=== PATIENT | female | born 1935 | race Caucasian/White ===

== ENCOUNTER 2022-03-16 16:11 | Inpatient (IN) | payer MEDICARE, OTHER ==
[2022-03-16 17:36] VITALS: BMI 15.5
[2022-03-16] MEDS ORDERED: Morphine 4 MG/ML VIAL SLOW IVP PRN ×3 (17:51→18:04)
[2022-03-16] MEDS ORDERED: Ondansetron PF 4 MG/2 ML Vial IVP PRN (17:51)
[2022-03-16] MEDS ORDERED: Ondansetron ODT 4 MG TAB PO PRN (17:51)
[2022-03-16] MEDS ORDERED: Dextrose 50% Abboject 50 ML SYRINGE SLOW IVP PRN (17:51)
[2022-03-16] MEDS ORDERED: hydrALAZINE 20 MG/ML VIAL SLOW IVP PRN (17:51)
[2022-03-16] MEDS ORDERED: TETANUS, DIPHTHERIA TOX,ADULT (TDVAX) 0.5 ML VIAL IM ONE (17:51)
[2022-03-16] MEDS ORDERED: Dextrose 5% in Water 1,000 ML IV PRN (17:51)
[2022-03-16] MEDS ORDERED: Acetaminophen/Codeine 30-300mg Tablet PO PRN (17:55)
[2022-03-16] MEDS ORDERED: Sodium Chloride 0.9% 1,000 ML IV SCH (18:00)
[2022-03-16] MEDS: Ketorolac Tromethamine 30 MG/ML VIAL IVP SCH ×2 (18:06→23:37)
[2022-03-16] MEDS: Acetaminophen 325 MG TAB PO SCH ×2 (18:07→23:38)
[2022-03-16] MEDS: Cyclobenzaprine 10 MG TAB PO PRN (18:07)
[2022-03-16] MEDS: Senokot S 8.6-50 MG TAB PO SCH (20:44)
[2022-03-16] MEDS: Latanoprost 0.005% Ophth Soln 2.5 ml Bottle EA EYE SCH (20:45)
[2022-03-16] MEDS: Carvedilol 3.125 MG TAB PO SCH (20:45)
[2022-03-16] MEDS ORDERED: Famotidine 20 MG TAB PO SCH (21:00)
[2022-03-16] MEDS: Gabapentin 100 MG CAP PO SCH (23:38)
[2022-03-16 23:46] LABS: Bilirubin Negative (Negative); Blood, Urine Negative (Negative); Clarity Clear (Clear); Glucose, Urine (Dipstick) Normal (Negative); Ketone, Urine Negative (Negative); Leukocyte Negative Leu/uL (Negative); Nitrite Negative (Negative); Protein, Urine (Dipstick) Negative (Neg-Trace); Specific Gravity, Urine 1.016 (1.002-1.036); Urobilinogen Normal mg/dL (Less than 2)
[2022-03-17] MEDS: Ketorolac Tromethamine 30 MG/ML VIAL IVP SCH (05:10)
[2022-03-17] MEDS: Acetaminophen 325 MG TAB PO SCH ×4 (05:11→23:01)
[2022-03-17] MEDS: Gabapentin 100 MG CAP PO SCH ×3 (05:11→21:22)
[2022-03-17 06:39] LABS: #Basophils 0.1 thou/uL (0.0-0.2); #Lymphocytes 0.9 thou/uL (1.20-3.40); #Monocytes 1.4 thou/uL (0.11-0.59); #Neutrophils 9.8 thou/uL (1.40-6.50); %Basophils 0.6 % (0.0-1.0); %Eosinophils 0.4 % (0.0-10.0); %Lymphocytes 7.4 % (21.0-51.0); %Monocytes 11.6 % (0.0-10.0); %Neutrophils 79.9 % (42.0-75.0); Hemoglobin 8.9 g/dL (12.0-16.0); Mean Corpuscular HGB CONC 30.7 g/dL (32.0-36.0); Mean Corpuscular Hemoglobin 23.8 pg (27.0-31.0); Mean Corpuscular Volume 77.6 fl (78.0-98.0); Mean Platelet Volume 8.5 fL (7.4-10.4); Platelet Count 381 10x3/uL (130-400); RBC Distribution Width 15.1 % (11.5-14.5); Red Blood Cell (RBC) Count 3.73 mill/uL (4.20-5.40); White Blood Cell (WBC) Count 12.3 10x3/uL (4.8-10.8)
[2022-03-17 06:53] LABS: Anion Gap 11 mmol/L (10-20); BUN (Urea Nitrogen) 29 mg/dL (9.8-20.1); Calc. Creatinine Clearance 34 mL/min (70-130); Carbon Dioxide 23 mmol/L (23-31); Chloride 110 mmol/L (98-107); Estimated GFR 76; Glucose 81 mg/dL (83-110); Magnesium 2.3 mg/dL (1.6-2.6); Sodium 140 mmol/L (136-145)
[2022-03-17 06:58] LABS: Phosphorus 3.7 mg/dL (2.3-4.7)
[2022-03-17] MEDS: Carvedilol 3.125 MG TAB PO SCH ×2 (08:11→20:03)
[2022-03-17] MEDS: Ferrous Sulfate 325 MG TAB PO SCH ×2 (08:12→16:57)
[2022-03-17] MEDS: Famotidine 20 MG TAB PO SCH (08:12)
[2022-03-17] MEDS: Senokot S 8.6-50 MG TAB PO SCH ×2 (08:14→20:02)
[2022-03-17] MEDS: Polyethylene Glycol 3350 17 GM Packet PO SCH (08:14)
[2022-03-17] MEDS ORDERED: Ascorbic Acid 500 mg Chewable Tablet PO SCH (09:00)
[2022-03-17] MEDS ORDERED: Fentanyl 250 MCG/5 ML VIAL ONE (11:55)
[2022-03-17] MEDS ORDERED: Sodium Chloride 0.9% 100 ML ONE (12:00)
[2022-03-17] MEDS ORDERED: CEFAZOLIN 2 GM VIAL ONE (12:00)
[2022-03-17] MEDS ORDERED: Ketamine 50 MG/ML (10ML VIAL) ONE (12:02)
[2022-03-17] MEDS ORDERED: ePHEDrine 50 MG/ML VIAL ONE ×2 (12:11)
[2022-03-17] MEDS ORDERED: Succinylcholine Chloride 100 MG/5 ML SYRINGE FS ONE (12:11)
[2022-03-17] MEDS ORDERED: Dexamethasone 20 MG/5 ML VIAL ONE (12:11)
[2022-03-17] MEDS ORDERED: Albumin 5% 250 ML ONE (12:11)
[2022-03-17] MEDS ORDERED: Ondansetron PF 4 MG/2 ML Vial ONE (12:11)
[2022-03-17] MEDS: Ascorbic Acid 500 mg Chewable Tablet PO SCH (16:57)
[2022-03-17] MEDS ORDERED: Ferrous Sulfate 325 MG TAB PO SCH (17:00)
[2022-03-17] MEDS ORDERED: Hydrocortisone Sod Succ/PF 100 mg/2 ml Vial IVP SCH (19:00)
[2022-03-17] MEDS: Latanoprost 0.005% Ophth Soln 2.5 ml Bottle EA EYE SCH (20:03)
[2022-03-17] MEDS: CEFAZOLIN 2 GM in Sodium Chloride 0.9% 100 ML IVPB SCH (21:22)
[2022-03-17] MEDS: Hydrocortisone Sod Succ/PF 100 mg/2 ml Vial IVP SCH (21:23)
[2022-03-17] MEDS ORDERED: Sodium Chloride 0.9% 1,000 ML IV SCH (22:00)
[2022-03-17 22:51] LABS: #Lymphocytes 0.6 thou/uL (1.20-3.40); #Monocytes 0.9 thou/uL (0.11-0.59); #Neutrophils 14.8 thou/uL (1.40-6.50); %Basophils 0.2 % (0.0-1.0); %Eosinophils 0.1 % (0.0-10.0); %Lymphocytes 3.5 % (21.0-51.0); %Monocytes 5.5 % (0.0-10.0); %Neutrophils 90.8 % (42.0-75.0); Hemoglobin 10.4 g/dL (12.0-16.0); Mean Corpuscular HGB CONC 30.6 g/dL (32.0-36.0); Mean Corpuscular Hemoglobin 24.4 pg (27.0-31.0); Mean Corpuscular Volume 79.7 fl (78.0-98.0); Mean Platelet Volume 8.5 fL (7.4-10.4); Platelet Count 339 10x3/uL (130-400); RBC Distribution Width 15.7 % (11.5-14.5); Red Blood Cell (RBC) Count 4.27 mill/uL (4.20-5.40); White Blood Cell (WBC) Count 16.3 10x3/uL (4.8-10.8)
[2022-03-18] MEDS: Hydrocortisone Sod Succ/PF 100 mg/2 ml Vial IVP SCH ×3 (05:36→20:44)
[2022-03-18] MEDS: Acetaminophen 325 MG TAB PO SCH ×4 (05:36→23:56)
[2022-03-18] MEDS: CEFAZOLIN 2 GM in Sodium Chloride 0.9% 100 ML IVPB SCH (05:37)
[2022-03-18] MEDS: Gabapentin 100 MG CAP PO SCH ×3 (05:37→20:44)
[2022-03-18 06:18] LABS: #Lymphocytes 0.7 thou/uL (1.20-3.40); #Monocytes 1.4 thou/uL (0.11-0.59); #Neutrophils 13.6 thou/uL (1.40-6.50); %Basophils 0.1 % (0.0-1.0); %Eosinophils 0.1 % (0.0-10.0); %Lymphocytes 4.4 % (21.0-51.0); %Monocytes 9.1 % (0.0-10.0); %Neutrophils 86.3 % (42.0-75.0); Hemoglobin 9.5 g/dL (12.0-16.0); Mean Corpuscular HGB CONC 31.2 g/dL (32.0-36.0); Mean Corpuscular Hemoglobin 25.1 pg (27.0-31.0); Mean Corpuscular Volume 80.5 fl (78.0-98.0); Mean Platelet Volume 8.8 fL (7.4-10.4); Platelet Count 328 10x3/uL (130-400); RBC Distribution Width 15.8 % (11.5-14.5); Red Blood Cell (RBC) Count 3.77 mill/uL (4.20-5.40); White Blood Cell (WBC) Count 15.8 10x3/uL (4.8-10.8)
[2022-03-18 06:32] LABS: Anion Gap 11 mmol/L (10-20); BUN (Urea Nitrogen) 29 mg/dL (9.8-20.1); Calc. Creatinine Clearance 28 mL/min (70-130); Calcium 8.2 mg/dL (7.8-10.44); Carbon Dioxide 22 mmol/L (23-31); Chloride 111 mmol/L (98-107); Estimated GFR 61; Glucose 130 mg/dL (83-110); Magnesium 2.1 mg/dL (1.6-2.6); Phosphorus 3.5 mg/dL (2.3-4.7); Potassium 4.2 mmol/L (3.5-5.1); Sodium 140 mmol/L (136-145)
[2022-03-18] MEDS: Ascorbic Acid 500 mg Chewable Tablet PO SCH ×2 (09:12→17:39)
[2022-03-18] MEDS: Senokot S 8.6-50 MG TAB PO SCH ×2 (09:12→20:44)
[2022-03-18] MEDS: Aspirin 81 mg Enteric Coated Tablet PO SCH ×2 (09:12→20:44)
[2022-03-18] MEDS: Famotidine 20 MG TAB PO SCH (09:12)
[2022-03-18] MEDS: Ferrous Sulfate 325 MG TAB PO SCH ×2 (09:12→17:39)
[2022-03-18] MEDS: Polyethylene Glycol 3350 17 GM Packet PO SCH (09:16)
[2022-03-18] MEDS: Latanoprost 0.005% Ophth Soln 2.5 ml Bottle EA EYE SCH (20:44)
[2022-03-19] MEDS: Hydrocortisone Sod Succ/PF 100 mg/2 ml Vial IVP SCH ×3 (05:42→21:33)
[2022-03-19] MEDS: Gabapentin 100 MG CAP PO SCH ×3 (05:43→21:33)
[2022-03-19] MEDS: Acetaminophen 325 MG TAB PO SCH ×3 (05:43→17:01)
[2022-03-19 07:50] LABS: #Lymphocytes 0.7 thou/uL (1.20-3.40); #Monocytes 1.2 thou/uL (0.11-0.59); #Neutrophils 11.3 thou/uL (1.40-6.50); %Basophils 0.2 % (0.0-1.0); %Eosinophils 0.3 % (0.0-10.0); %Lymphocytes 5.2 % (21.0-51.0); %Monocytes 9.3 % (0.0-10.0); %Neutrophils 85.1 % (42.0-75.0); Hemoglobin 8.8 g/dL (12.0-16.0); Mean Corpuscular HGB CONC 30.7 g/dL (32.0-36.0); Mean Corpuscular Hemoglobin 24.9 pg (27.0-31.0); Mean Corpuscular Volume 81.2 fl (78.0-98.0); Mean Platelet Volume 8.6 fL (7.4-10.4); Platelet Count 327 10x3/uL (130-400); RBC Distribution Width 16.5 % (11.5-14.5); Red Blood Cell (RBC) Count 3.55 mill/uL (4.20-5.40); White Blood Cell (WBC) Count 13.3 10x3/uL (4.8-10.8)
[2022-03-19 08:22] LABS: Anion Gap 12 mmol/L (10-20); BUN (Urea Nitrogen) 26 mg/dL (9.8-20.1); Calc. Creatinine Clearance 36 mL/min (70-130); Calcium 8.1 mg/dL (7.8-10.44); Carbon Dioxide 20 mmol/L (23-31); Chloride 111 mmol/L (98-107); Estimated GFR 81; Glucose 99 mg/dL (83-110); Magnesium 2.1 mg/dL (1.6-2.6); Phosphorus 2.6 mg/dL (2.3-4.7); Potassium 3.8 mmol/L (3.5-5.1); Sodium 139 mmol/L (136-145)
[2022-03-19] MEDS: Famotidine 20 MG TAB PO SCH (08:28)
[2022-03-19] MEDS: Ascorbic Acid 500 mg Chewable Tablet PO SCH ×2 (08:28→17:01)
[2022-03-19] MEDS: Aspirin 81 mg Enteric Coated Tablet PO SCH (08:28)
[2022-03-19] MEDS: Polyethylene Glycol 3350 17 GM Packet PO SCH (08:28)
[2022-03-19] MEDS: Ferrous Sulfate 325 MG TAB PO SCH ×2 (08:29→17:01)
[2022-03-19] MEDS: Senokot S 8.6-50 MG TAB PO SCH ×2 (08:29→21:33)
[2022-03-19] MEDS: Latanoprost 0.005% Ophth Soln 2.5 ml Bottle EA EYE SCH (21:33)
[2022-03-20] MEDS: Acetaminophen 325 MG TAB PO SCH ×3 (00:03→12:51)
[2022-03-20] MEDS: Hydrocortisone Sod Succ/PF 100 mg/2 ml Vial IVP SCH ×2 (05:44→14:59)
[2022-03-20] MEDS: Gabapentin 100 MG CAP PO SCH ×2 (05:44→14:59)
[2022-03-20] MEDS ORDERED: Clopidogrel Bisulfate 75 MG TAB PO SCH (09:00)
[2022-03-20] MEDS: Senokot S 8.6-50 MG TAB PO SCH (09:07)
[2022-03-20] MEDS: Ferrous Sulfate 325 MG TAB PO SCH (09:07)
[2022-03-20] MEDS: Ascorbic Acid 500 mg Chewable Tablet PO SCH (09:07)
[2022-03-20] MEDS: Famotidine 20 MG TAB PO SCH (09:07)
[2022-03-20] MEDS: Cyclobenzaprine 10 MG TAB PO PRN (09:15)
[2022-03-20] MEDS: Polyethylene Glycol 3350 17 GM Packet PO SCH (09:18)
[2022-03-20 12:19] VITALS: TEMP 97.6
[2022-03-20 15:28] VITALS: BP 115/63
== END 2022-03-20 16:25 | DRG 481 ==
LOC: SURG A 17:18
PROVIDERS: ADMIT Surgery; ATTEND Surgery
PROC: 0QS604Z Reposition Right Upper Femur with Internal Fixation Device, Open Approach (ICD-10-PCS; principal; 2022-03-17)
PROC: 30233N1 Transfusion of Nonautologous Red Blood Cells into Peripheral Vein, Percutaneous Approach (ICD-10-PCS; 2022-03-17)
DX: S72.141A Displaced intertrochanteric fracture of right femur, initial encounter for closed fracture (principal); E27.40 Unspecified adrenocortical insufficiency; Z20.822 Contact with and (suspected) exposure to COVID-19; I10 Essential (primary) hypertension; R33.9 Retention of urine, unspecified; W18.39XA Other fall on same level, initial encounter; I25.10 Atherosclerotic heart disease of native coronary artery without angina pectoris; M41.9 Scoliosis, unspecified; I95.89 Other hypotension; Z95.2 Presence of prosthetic heart valve; Z90.49 Acquired absence of other specified parts of digestive tract; Z79.899 Other long term (current) drug therapy; Z79.82 Long term (current) use of aspirin; Z79.02 Long term (current) use of antithrombotics/antiplatelets
CPT/HCPCS: 36415; 36430; 71045; 80048; 80053; 81003; 82533; 83735; 84100; 85025; 85610; 85730; 86850; 86900; 86901; 93005; 96374; 96375; 96376; C1713; J1100; J1720; J1885; J2270; J2405; J3010; J3490; J7050; P9016; P9045; U0003; U0005

== ENCOUNTER 2022-03-20 21:28 | Emergency (ER) | payer MEDICARE, OTHER ==
[2022-03-20] MEDS ORDERED: Acetaminophen 325 MG TAB ONE (23:45)
[2022-03-20] MEDS ORDERED: Gabapentin 100 MG CAP PO SCH (23:59)
[2022-03-21] MEDS ORDERED: Acetaminophen 325 MG TAB ONE (05:06)
== END 2022-03-21 14:15 ==
LOC: ERS 21:28
DX: S72.001D Fracture of unspecified part of neck of right femur, subsequent encounter for closed fracture with routine healing (principal); I10 Essential (primary) hypertension; Z79.82 Long term (current) use of aspirin
CPT/HCPCS: 99284